=== PATIENT | male | born 1960 | race Two or more races ===

== ENCOUNTER 2016-08-21 11:52 | Day surgery (SDC) | payer BC ==
[2016-08-20 14:06] VITALS: BMI 26.1
[~2016-08-21] VITALS: Ht 180.3 cm; Wt 95.6 kg
[2016-08-21] VITALS (10 sets, daily range): BP systolic 118–142; BP diastolic 67–84; PULSE 64–84; RESP 15–18; Ht 180.3 cm; Wt 95.6 kg
[~2016-08-21 11:52] MED LIST: CIPROFLOXACIN 400 MG in D5W 200 ML IVPB SCH; LACTATED RINGER'S 1,000 ML IV* SCH
--- NOTE | 2016-08-21 13:30 | RADRPT ---
PROCEDURE: XR Chest AP portable CLINICAL INDICATION: Preop TECHNIQUE: An AP portable radiograph of the chest was submitted. COMPARISON: None. FINDINGS: Support Hardware: None Cardiovascular: The cardiovascular silhouette appears unremarkable. Lung Hou: The lung hou appear clear with no nodule, alveolar infiltrate, or interstitial promi nence evident. Pleural Spaces: No pneumothorax or pleural effusion is identified. Osseous Structures: The osseous structures appear intact. Soft Tissues: The soft tissues appear unremarkable. IMPRESSION: Unremarkable portable chest. Physician Elier Date Time Electronically viewed and signed by Sandra Lipscomb Physician on 08/21/2016 13:29 /
[2016-08-21] MEDS ORDERED: FENTAnyl 50 MCG/ML VIAL ONE (14:03)
[2016-08-21] MEDS ORDERED: MIDAZOLAM 1 MG/ML 2 ML INJ ONE (14:03)
[2016-08-21] MEDS ORDERED: BUPIVACAINE 0.25%/EPI (SDV) 30 ML INJ ONE (14:22)
[2016-08-21 14:23] LABS: ADD SCAN DIFF NO
[2016-08-21 14:28] LABS: BASOPHILS % 0.4 % (0.0-2.0); EOSINOPHILS # 0.2 10^3/ul (0.0-0.5); HEMATOCRIT 40.7 % (42.0-52.0); HEMOGLOBIN 13.5 g/dl (14.0-18.0); LYMPHOCYTES # 2.4 10^3/ul (0.8-2.9); LYMPHOCYTES % 35.4 % (15.0-51.0); MEAN CORPUSCULAR HEMOGLOBIN 27.7 pg (29.0-33.0); MEAN CORPUSCULAR HGB CONC 33.2 g/dl (32.0-37.0); MEAN CORPUSCULAR VOLUME 83.4 fl (82.0-101.0); MEAN PLATELET VOLUME 9.5 fl (7.4-10.4); MONOCYTE # 0.4 10^3/ul (0.3-0.9); MONOCYTES % 6.1 % (0.0-11.0); NEUTROPHIL # 3.7 10^3/ul (1.6-7.5); NEUTROPHILS % 54.7 % (39.0-77.0); PLATELET COUNT 296 10^3/UL (140-415); RED BLOOD COUNT 4.88 10^6/ul (4.70-6.10); RED CELL DISTRIBUTION WIDTH 12.3 % (11.5-14.5); WHITE BLOOD COUNT 6.7 10^3/ul (4.8-10.8)
[2016-08-21] MEDS ORDERED: ONDANSETRON 4 MG INJ IV PRN ×2 (14:30→15:30)
[2016-08-21] MEDS ORDERED: MEPERIDINE 25 MG INJ IV PRN (14:30)
[2016-08-21] MEDS ORDERED: DIPHENHYDRAMINE 50 MG INJ IV PRN (14:30)
[2016-08-21] MEDS ORDERED: FENTAnyl 50 MCG/ML VIAL IV PRN (14:30)
[2016-08-21 14:35] LABS: PROTIME 13.2 Sec (12.2-14.2)
[2016-08-21 14:36] LABS: PARTIAL THROMBOPLASTIN TIME 28.8 Sec (25.0-35.0)
[2016-08-21 14:37] LABS: ALBUMIN 4.2 g/dl (3.3-4.9)
[2016-08-21 14:40] LABS: ALBUMIN/GLOBULIN RATIO 1.31; BILIRUBIN,INDIRECT 0.4 mg/dl (0-1.1); BILIRUBIN,TOTAL 0.4 mg/dl (0.2-1.3); TOTAL PROTEIN 7.4 g/dl (6.1-8.1)
[2016-08-21 14:44] LABS: CALCIUM 9.1 mg/dl (8.4-10.2); CREATININE 0.87 mg/dl (0.61-1.24)
[2016-08-21] MEDS ORDERED: BUPIVACAINE 0.25%/EPI (SDV) 30 ML INJ INJ ONE (15:00)
[2016-08-21] MEDS ORDERED: LACTATED RINGER'S 1,000 ML IV SCH ×2 (15:23)
[2016-08-21] MEDS ORDERED: LIDOCAINE 2% (SDV) 5 ML INJ ONE (15:25)
[2016-08-21] MEDS ORDERED: PROPOFOL 20 ML ONE (15:25)
[2016-08-21] MEDS ORDERED: CEFAZOLIN 1 GM INJ ONE (15:27)
[2016-08-21] MEDS ORDERED: ONDANSETRON 4 MG INJ ONE (15:27)
[2016-08-21] MEDS ORDERED: HYDROCODONE/APAP (5/325) TAB PO PRN ×2 (15:30)
[2016-08-21] MEDS ORDERED: morphine 2 MG INJ IV PRN (15:30)
--- NOTE | 2016-08-21 17:02 | OPR ---
DATE OF OPERATION: 08/21/2016 SURGEON: Mihir Sanchez MD [employer] DIRECTOR: None. ANESTHESIA: General and local. ANESTHESIOLOGIST: CITLALLI CASEY MD. PREOPERATIVE DIAGNOSIS: Skin subcutaneous mass, left perineal area. POSTOPERATIVE DIAGNOSES: Skin, subcutaneous mass, left perineal area. OPERATION PERFORMED: Excision of the mass including closure in 2 layers. INDICATION: The patient came to my office complaining of presence of a lump in the left groin and p erineal area for several years. It gradually has increased in size and it bothers him. On physical examination, the mass solid in the left perineal area, appeared like a huge skin appendage with the center a mass-like feeling. So, discussed with the patient the alternatives of treatment, risks an d benefits of operation, possible complications including infection, bleeding, and chronic pain and others. The patient understood, accepted and wanted the operation to be done. PROCEDURE: The patient brought to the operating room, placed on operating table in supine position. Anesthesia was induced by the anesthesiologist, 2 grams of Ancef was given IV. Time-out was francisco d. The patient was identified, site of operation was identified, discussed among the team. Positio n of the patient was changed to lithotomy position with Bar stirrups and then prepped with Betadin e and then it was performed. After satisfactory position and the sterile field was obtained, the ar ea was injected with 0.25% Marcaine with epinephrine and all together 20 mL was used for injection for local anesthesia. Then an elliptical longitudinal skin incision was made about 4 cm long and ab out 1.5 to 2 cm wide and carried through subcutaneous tissue. The core appeared to be like a lipoma down there and this was eventually excised. Hemostasis achieved. Since the approximation of the r emaining tissue was slightly under tension, bilateral left and right over the medial and lateral ski n flaps were developed. This was performed again. The wound was irrigated with normal saline solut ion and Betadine. Closure started, deep layer with #3-0 Vicryl in interrupted fashion. Three sutur es were applied and then the skin was closed the subcuticular 4-0 Monocryl. At the end, Dermabond w as applied over the edges of the skin. The patient tolerated procedure well. Sponge and instrument count reported to be correct x2. Specimen was sent for pathologic evaluation. The patient was extubated, transferred to recovery room in stable condition. Dictated By: MIHIR LANE/TONIO Conf#: [id number] DID#: [id number]
--- NOTE | 2016-08-21 20:29 | RADRPT ---
Vent Rate: 74 bpm RR Interval: 0 msec GA Interval: 152 msec QRS Duration: 88 msec QT Interval: 382 msec QTC Interval: 424 msec P-R-T [place]: 60 - 92 - 22 degrees Normal sinus rhythm Possible Left atrial enlargement Rightward axis Low voltage QRS Borderline ECG Electronically Signed By: Jah Meza [id number]
== END 2016-08-21 17:00 | disposition home or self-care (01) ==
LOC: SDS 11:52
DX: D17.1 Benign lipomatous neoplasm of skin and subcutaneous tissue of trunk (principal); J45.909 Unspecified asthma, uncomplicated
CPT/HCPCS: 11404; 12031; 71010; 80053; 85025; 85610; 85730; 88307; 93005; J0690; J2250; J2405; J3010; Z7512; Z7610